=== PATIENT | male | born 1950 | race Caucasian/White ===

== ENCOUNTER → 2025-08-19 15:06 | Outpatient (REF) | payer MEDICARE, SELFPAY | LOC: MRI 3T 15:06 | PROVIDERS: ATTENDING PHYSICIAN Urology; FAMILY PHYSICIAN Internal Medicine | DX: R97.20 Elevated prostate specific antigen [PSA] (principal) | CPT/HCPCS: 72197; A9575 ==

== ENCOUNTER → 2025-09-16 14:20 | Outpatient (REF) | payer MEDICARE, SELFPAY | LOC: CLAB 14:20 | PROVIDERS: ATTENDING PHYSICIAN Urology | DX: R97.20 Elevated prostate specific antigen [PSA] (principal) | CPT/HCPCS: 88305 ==